=== PATIENT | male | born 2000 | race Caucasian/White ===

== ENCOUNTER 2023-04-15 14:15 | Observation (INO) ==
[2023-04-15 14:51] LABS: Basophils # (auto) 0.01 K/uL (0.00-0.20); Basophils % (auto) 0.2 %; Eosinophils # (auto) 0.03 K/uL (0.00-0.50); Eosinophils % (auto) 0.5 %; Hematocrit (blood only) 46.7 % (42.0-52.0); Hemoglobin 15.7 g/dl (14.0-18.0); Immature Granulocytes # (auto) 0.02 K/uL (0.01-0.20); Immature Granulocytes % (auto) 0.3 %; Lymphocytes # (auto) 1.37 K/uL (1.20-3.40); Lymphocytes % (auto) 22.4 %; Mean Corpuscular Hemoglobin 31.3 pg (25.0-34.0); Mean Corpuscular Hgb Conc 33.6 g/dL (32.0-36.0); Mean Platelet Volume 10.8 fL (9.4-12.4); Monocytes # (auto) 0.57 K/uL (0.11-0.59); Monocytes % (auto) 9.3 %; Neutrophils # (auto) 4.11 K/uL (1.40-6.50); Neutrophils % (auto) 67.3 %; Platelet Count 242 K/uL (130-400); RDW Coefficient of Variation 12.5 % (11.5-14.5); RDW Standard Deviation 43.2 fL (36.4-46.3); Red Blood Count 5.02 M/uL (4.70-6.10); White Blood Count 6.11 K/ul (4.8-10.8)
[2023-04-15] MEDS ORDERED: SODIUM CHLORIDE 0.9% 1,000 ML IV ONE ×2 (14:51→16:07)
--- NOTE | 2023-04-15 14:52 | Emergency Department Note ---
Impression & Plan Acute pancreatitis ADMIT ED Provider Note HPI: History obtained from patient. The patient is a 22-year-old male who presents emergency department with a chief complaint of epigastric and left-sided abdominal pain. Patient states he has had this pain for the past several days. Patient states yesterday he had a large episode of emesis. Patient denies any diarrhea. Patient denies any chest pain. On arrival here to the ED the patient is mildly tachycardic at 101 but otherwise hemodynamically stable and saturating well on room air. ROS: - Per HPI Differential Diagnosis: Acute gastritis, acute pancreatitis, acute cholecystitis, esophagitis, ACS, pulmonary embolism, pneumothorax, amongst other potential pathologies. *Outpatient medications and allergy history reviewed. PE: General: Alert HEENT: Normocephalic, trachea midline Eyes: Extraocular eye movement is intact, no scleral erythema Pulmonary: Clear to auscultation bilaterally, no wheezing Cardio: Regular rate and rhythm GI: Abdomen is soft to palpation, moderate tenderness over the epigastric area without any guarding or rigidity : No suprapubic tenderness MSK: No evidence of trauma or malformation of the extremities, no edema Skin: No evidence of rash Neuro: Alert, no focal deficits Psychiatric: Cooperative INDEPENDENT INTERPRETATIONS: monitor and storage bin tender: (As interpreted by myself): - An order was placed for continuous cardiac monitoring - Patient was noted to be in sinus rhythm with a rate of 85 EKG: (As interpreted by myself): Rate: 93 Rhythm: Normal sinus rhythm Intervals: Within normal limits ST changes: No ST elevation Time: 1424 Chest x-ray: (As interpreted by myself): No acute disease Interventions provided in ED: -IV fluid bolus Medical Decision Making: IV was established and lab work obtained, patient was placed on cafeteria monitor. Lab work shows no leukocytosis, hemoglobin is normal, platelet count is normal, CMP does not show any critical findings. Troponin is negative x 1. Lipase is elevated at 338. Bilirubin is normal, there is no transaminitis. CT imaging of the abdomen pelvis was obtained that shows evidence of a mild pancreatitis. There is no fluid collection or ductal dilatation noted by the interpreting radiologist. On my reassessment the patient appears well, he is in no acute distress. Given elevated lipase, pain on exam, and findings on CT imaging concerning for acute pancreatitis, patient will be admitted to the hospitalist service. Case was discussed with the on-call hospitalist, Dr. Watson, the patient was placed for admission in stable condition. Consultants/Discussions held with other healthcare providers: -Hospitalist, Dr. Watson Disposition discussion held by myself with: -Patient Diagnosis: 1. Acute pancreatitis 2. Abdominal pain, acute 3. Nausea and vomiting, acute Disposition: Admission Ponce Yeh DO Emergency Medicine Past Med/Surg History Medical History (Updated 04/15/23 @ 21:05 by Ponce Yeh DO) Marijuana smoker Vaping nicotine dependence, tobacco product No pertinent past medical history Surgical History (Updated 04/15/23 @ 16:58 by Valentine Watson DO) S/P nasal surgery No pertinent past surgical history Social History (Updated 04/15/23 @ 16:58 by Valentine Watson DO) Smoking Status: Current every day smoker Tobacco Type: E-cigarettes / Vaping Second Hand Exposure: No; Do You Dip or Chew Tobacco: No; Tobacco Cessation Education Requested by Patient: No Hx Alcohol Use: No Hx Substance Use: Yes Last Used Substance: Just Prior to Arrival Preferred Language: Luxembourgish Communication Ability: Effective Cotton Washer Required: No Beliefs That Will Affect Care: None Current Living Situation: Significant Other Other Information That Helps Us Care for You: No Feels Safe at Home: Yes Safety Concerns: Feels Safe At This Time Allergies Allergies Allergy/AdvReac Type Severity Reaction Status Date / Time No Known Allergies Allergy Unverified 10/29/19 16:54 Home Meds Home Medications Medication Instructions Recorded Confirmed No Known Home Medications 10/29/19 04/15/23 Results & Data (ED) Vital Signs Vital Signs - 24 hr 04/15/23 14:18 04/15/23 14:27 04/15/23 14:27 Temperature 37 C Temperature Source Temporal Artery Scan Pulse Rate 95 H Pulse Rate [Apical] 101 H Respiratory Rate 16 20 Respiratory Effort / Characteristics Non-Labored Spontaneous Non-Labored Respiratory Depth Normal Normal Respiratory Pattern Blood Pressure 131/94 Blood Pressure [Right Arm] 138/80 Blood Pressure Mean 106 Blood Pressure Mean [Right Arm] 99 Pulse Oximetry 98 99 Oxygen Delivery Method Room Air Room Air Room Air Sepsis Recent Fever Within 48 Hours No Sepsis New/Unexplained Change in Mental Status No Sepsis Action Taken by Nursing No Action Required 04/15/23 14:27 04/15/23 15:16 04/15/23 16:15 Temperature Temperature Source Pulse Rate 65 Pulse Rate [Apical] 86 Respiratory Rate 18 Respiratory Effort / Characteristics Non-Labored Respiratory Depth Normal Respiratory Pattern Regular Blood Pressure Blood Pressure [Right Arm] 121/77 Blood Pressure Mean Blood Pressure Mean [Right Arm] 91 Pulse Oximetry 99 99 Oxygen Delivery Method Room Air Room Air Sepsis Recent Fever Within 48 Hours Sepsis New/Unexplained Change in Mental Status Sepsis Action Taken by Nursing Laboratory Data 04/15/23 14:28 04/15/23 14:28 Lab Results 04/15/23 Range/Units 14:28 WBC 6.11 (4.8-10.8) K/ul RBC 5.02 (4.70-6.10) M/uL Hgb 15.7 (14.0-18.0) g/dl Hct 46.7 (42.0-52.0) % MCV 93.0 (80.0-100.0) fL MCH 31.3 (25.0-34.0) pg MCHC 33.6 (32.0-36.0) g/dL RDW Std Deviation 43.2 (36.4-46.3) fL RDW Coeff of Vijay 12.5 (11.5-14.5) % Plt Count 242 (130-400) K/uL MPV 10.8 (9.4-12.4) fL Immature Gran % (Auto) 0.3 % Neut % (Auto) 67.3 % Lymph % (Auto) 22.4 % [place] % (Auto) 9.3 % Eos % (Auto) 0.5 % Baso % (Auto) 0.2 % Neut # (Auto) 4.11 (1.40-6.50) K/uL Lymph # (Auto) 1.37 (1.20-3.40) K/uL [place] # (Auto) 0.57 (0.11-0.59) K/uL Eos # (Auto) 0.03 (0.00-0.50) K/uL Baso # (Auto) 0.01 (0.00-0.20) K/uL Immature Gran # (Auto) 0.02 (0.01-0.20) K/uL PT 12.4 H (9.0-12.0) Seconds INR 1.1 (0.9-1.1) Sodium 137 (136-145) mmol/L Potassium 3.6 (3.5-5.1) mmol/L Chloride 100 (98-107) mmol/L Carbon Dioxide 30 (21-32) mmol/L Anion Gap 7 (3-11) BUN 15 (6-23) mg/dl Creatinine 1.05 (0.6-1.4) mg/dl Est Cr Clr Drug Dosing 111.3 ml/min Est GFR ( Amer) 117.0 ml/min Est GFR (Non-Af Amer) 101.0 ml/min BUN/Creatinine Ratio 14.3 (10-20) Glucose 107 H (70-99(Fasting)) mg/dl Calcium 9.7 (8.6-10.3) mg/dl Total Bilirubin 0.4 (0.2-1.0) mg/dl AST 16 (13-39) U/L ALT 14 (7-52) U/L Alkaline Phosphatase 69 (34-104) U/L Troponin I High Sens < 2.3 (0-20) pg/ml Total Protein 7.8 (6.0-8.3) gm/dl Albumin 5.1 H (3.4-5.0) gm/dl Globulin 2.7 (2.5-4.0) gm/dl Albumin/Globulin Ratio 1.9 (0.9-2) Lipase 338 H (11-82) U/L Administered Medications Enoxaparin Sodium (Enoxaparin Inj 40 Mg/0.4 Ml Syr) 40 mg SQ Q24H TERESA Stop: 05/15/23 18:14 Last Admin: 04/15/23 18:20 Dose: Not Given Documented By: COLTEN Lactated Ringer's (Lr) 1,000 mls @ 150 mls/hr IV .Q6H40M TERESA Stop: 04/16/23 13:52 Last Admin: 04/15/23 18:11 Dose: 150 mls/hr Documented By: COLTEN Discontinued Medications Sodium Chloride (Nss) 1,000 mls @ 999 mls/hr IV .Q1H1M ONE Stop: 04/15/23 15:51 Last Infusion: 04/15/23 16:23 Dose: Infused Documented By: Admin: 04/15/23 15:04 Dose: 999 mls/hr Documented By: ANTHONY Sodium Chloride (Nss) 1,000 mls @ 999 mls/hr IV .Q1H1M ONE Stop: 04/15/23 17:07 Last Infusion: 04/15/23 17:24 Dose: Infused Documented By: Admin: 04/15/23 16:27 Dose: 999 mls/hr Documented By: ANTHONY Ioversol (Optiray 320 500ml) 90 ml IV ONCE ONE Stop: 04/15/23 15:44 Last Admin: 04/15/23 15:39 Dose: 90 ml Documented By: BRADY Imaging Data Radiologist's Impression: Chest X-Ray 04/15/23 14:22 XR chest 1V portable HISTORY: 22 years-old Male Chest pain, nonspecific COMPARISON: None TECHNIQUE: AP view of the chest FINDINGS: Cardiomediastinal and hilar silhouettes are within normal limits. No pneumothorax, pleural effusion or airspace consolidation. The bones appear normal. IMPRESSION: No acute process. ACT 112: Negative or not required by law. The above report was generated using voice recognition software. It may contain grammatical, syntax or spelling errors. Electronically signed by: Meng Tuttle M.D. 04/15/2023 2:59 PM Abdomen/Pelvis CT 04/15/23 14:[address] WITH IV CONTRAST CT DOSE: 698.68 mGy.cm HISTORY: Acute epigastric abdominal pain with nausea and vomiting Epigastric and left-sided abdominal pain, n/v TECHNIQUE: Multiaxial CT images of the abdomen and pelvis were performed following the IV administration of 90 cc of Optiray, A dose lowering technique was utilized adhering to the principles of ALARA. COMPARISON STUDY: 01/15/2023 FINDINGS: Subtle tree-in-bud micronodules are noted within the left lower lobe. There is mild interstitial peripancreatic edema with slightly decreased enhancement involving the pancreatic body. The liver, spleen, gallbladder, kidneys, and adrenal glands are within normal limits. Mild wall thickening of the distal esophagus and proximal stomach. Moderate fecal retention. Noninflamed appendix. No bowel wall thickening or obstruction. Mild urinary bladder wall thickening with partial distention. Trace free pelvic fluid. No suspicious lytic or blastic osseous lesions. IMPRESSION: 1. Mild acute pancreatitis. No acute peripancreatic fluid collection or pancreatic ductal dilation. 2. Mild wall thickening of the distal esophagus and stomach is nonspecific and may be reactive. A primary gastritis considered less likely. 3. No bowel obstruction or bowel wall thickening. 4. Trace ascites. 5. Noninflamed appendix. ACT 112: Negative or not required by law. The above report was generated using voice recognition software. It may contain grammatical, syntax or spelling errors. Electronically signed by: Meng Tuttle M.D. 04/15/2023 4:02 PM Discharge Plan Visit Data Chief Complaint: Chest Pain Stated Complaint: ABDOMINAL AND CHEST PAIN ED Provider: Ponce Yeh Discharge Problem: Acute pancreatitis Patient Disposition: Admitted As Inpatient Discharge Instructions Interventions: ED Discharge Assessment Last Done: 04/15/23 17:33 Discharge Problem: Acute pancreatitis Qualifiers: Pancreatitis type: unspecified pancreatitis type Acute pancreatitis complication: unspecified Qualified Code(s): K85.90 - Acute pancreatitis without necrosis or infection, unspecified
--- NOTE | 2023-04-15 15:01 | XRay Report ---
XR chest 1V portable HISTORY: 22 years-old Male Chest pain, nonspecific COMPARISON: None TECHNIQUE: AP view of the chest FINDINGS: Cardiomediastinal and hilar silhouettes are within normal limits. No pneumothorax, pleural effusion o r airspace consolidation. The bones appear normal. IMPRESSION: No acute process. ACT 112: Negative or not required by law. The above report was generated using voice recognition software. It may contain grammatical, syntax o r spelling errors. Electronically signed by: Meng Tuttle M.D. 04/15/2023 2:59 PM
[2023-04-15 15:04] LABS: Alanine Aminotransferase 14 U/L (7-52); Albumin Globulin Ratio 1.9 (0.9-2); Albumin Level 5.1 gm/dl (3.4-5.0); Alkaline Phosphatase 69 U/L (34-104); Anion Gap 7 (3-11); Aspartate Aminotransferase 16 U/L (13-39); BUN Creatinine Ratio 14.3 (10-20); Bilirubin,Total 0.4 mg/dl (0.2-1.0); Blood Urea Nitrogen 15 mg/dl (6-23); Calcium 9.7 mg/dl (8.6-10.3); Carbon Dioxide 30 mmol/L (21-32); Chloride 100 mmol/L (98-107); Creatinine Clr Calc Pharmacy 111.3 ml/min; Globulin 2.7 gm/dl (2.5-4.0); Glucose 107 mg/dl (70-99(Fasting)); Lipase 338 U/L (11-82); Potassium 3.6 mmol/L (3.5-5.1); Sodium 137 mmol/L (136-145); Total Protein 7.8 gm/dl (6.0-8.3)
[2023-04-15 15:09] LABS: INR 1.1 (0.9-1.1); Prothrombin Time 12.4 Seconds (9.0-12.0)
[2023-04-15 15:11] LABS: Troponin I High Sensitivity < 2.3 pg/ml (0-20)
[2023-04-15] MEDS ORDERED: OPTIRAY 320 500ml IV ONE (15:43)
--- NOTE | 2023-04-15 16:05 | CT Scan Report ---
ABDOMEN AND PELVIS CT WITH IV CONTRAST CT DOSE: 698.68 mGy.cm HISTORY: Acute epigastric abdominal pain with nausea and vomiting Epigastric and left-sided abdomina l pain, n/v TECHNIQUE: Multiaxial CT images of the abdomen and pelvis were performed following the IV administrat ion of 90 cc of Optiray, A dose lowering technique was utilized adhering to the principles of ALARA. COMPARISON STUDY: 01/15/2023 FINDINGS: Subtle tree-in-bud micronodules are noted within the left lower lobe. There is mild interst itial peripancreatic edema with slightly decreased enhancement involving the pancreatic body. The [place] er, spleen, gallbladder, kidneys, and adrenal glands are within normal limits. Mild wall thickening o f the distal esophagus and proximal stomach. Moderate fecal retention. Noninflamed appendix. No bowel wall thickening or obstruction. Mild urinary bladder wall thickening with partial distention. Trace free pelvic fluid. No suspicious lytic or blastic osseous lesions. IMPRESSION: 1. Mild acute pancreatitis. No acute peripancreatic fluid collection or pancreatic ductal dilation. 2. Mild wall thickening of the distal esophagus and stomach is nonspecific and may be reactive. A rashad brittany gastritis considered less likely. 3. No bowel obstruction or bowel wall thickening. 4. Trace ascites. 5. Noninflamed appendix. ACT 112: Negative or not required by law. The above report was generated using voice recognition software. It may contain grammatical, syntax o r spelling errors. Electronically signed by: Meng Tuttle M.D. 04/15/2023 4:02 PM
--- NOTE | 2023-04-15 17:01 | History & Physical Report ---
Date of Service April 15, 2023 Assessment & Plan (1) Acute pancreatitis: Plan: Recent exposure to others with a GI illness may have contributed to symptoms of vomiting and fever yesterday with elevation in lipase as a result of that. However, CT scan shows evidence of mild pancreatitis and with epigastric TTP, and pain with eating, the clinical picture is consistent with mild pancreatitis. He reports feeling hungry so will trial clears starting tomorrow. Cont with IVF overnight for rehydration efforts and pain control as needed. (2) Vaping nicotine dependence, tobacco product: Plan: Smoking cessation recommended. (3) Marijuana smoker: Plan: Vapes marijuana, consider using edible or alternative to avoid combustible inhaled substances. DVT proph: SCDs/ambulation Full Code Dispo-to home in next 1-2 days as long as tolerating PO. I spent a total [id number] coordinating, documenting, and providing care for this patient excluding time spent in the performance of separately billed services Valentine Watson DO [facility] Hospitalist History of Present Illness Chief Complaint: epigastric pain Primary Care Provider: Chandni Saez MD 22 yo M presents with 2 days of epigastric pain. He reports that food causes him epigastric pain. He had an episode of nonbloody emesis yesterday described as green. He reports a fever yesterday and lethargy but no chills and is afebrile today. His fiance is at bedside and assists wtih the history. He has not had great PO intake with last meal being pork chops that were home made two nights before. He also reports two others who he interacted with who were sick with similiar symptoms of vomiting. One was a brother who is 16 yo and another was a friend's child who had direct contact with the patient recently and also suffered from a GI illness. Allergies Allergy/AdvReac Type Severity Reaction Status Date / Time No Known Allergies Allergy Unverified 10/29/19 16:54 Home Medications Medication Instructions Recorded Confirmed Type No Known Home Medications 10/29/19 04/15/23 History Past Med/Surg History Medical History (Updated 04/15/23 @ 20:32 by Valentine Watson DO) Marijuana smoker Vaping nicotine dependence, tobacco product No pertinent past medical history Surgical History (Updated 04/15/23 @ 16:58 by Valentine Watson DO) S/P nasal surgery No pertinent past surgical history Social History (Updated 04/15/23 @ 16:58 by Valentine Watson DO) Smoking Status: Current every day smoker Tobacco Type: E-cigarettes / Vaping Second Hand Exposure: No; Do You Dip or Chew Tobacco: No; Tobacco Cessation Education Requested by Patient: No Hx Alcohol Use: No Hx Substance Use: Yes Last Used Substance: Just Prior to Arrival Preferred Language: Uruguayan Communication Ability: Effective Ice Cream Chef Required: No Beliefs That Will Affect Care: None Current Living Situation: Significant Other Other Information That Helps Us Care for You: No Feels Safe at Home: Yes Safety Concerns: Feels Safe At This Time Physical Exam Physical Exam: CONSTITUTIONAL: WNWD, vitals as above, generally well-appearing, NAD EYES: normal conjunctivae, no scleral icterus ENT: external ear and nose normal, MMM NECK: trachea midline RESPIRATORY: clear to auscultation bilaterally, no crackles, rales or wheezes, normal respiratory effort CARDIOVASCULAR: regular rate and rhythm, S1 and 2 heard without murmurs, gallops or rubs, no JVD, no peripheral edema CHEST: inspection of chest was normal GASTROINTESTINAL: normal bowel sounds, soft, epigastric TTP, nondistended, no guarding MUSCULOSKELETAL: strength 5/5 throughout, head is normocephalic and atraumatic, neck supple, normal palpation of chest wall without tenderness SKIN: warm and dry NEUROLOGIC: No facial palsy, no dysarthria. Touch, pain and proprioception normal. CN 2-12 grossly intact, no sensory deficit, normal cognition, normal speech, no tremor PSYCHIATRIC: alert cooperative and oriented to person, place and time. Euthymic mood, makes good eye contact, language grossly intact, recent and remote memory grossly intact. Results & Data Results & Data Vital Signs (Past 12 Hours) Vital Signs Temp Pulse Pulse Resp BP BP Pulse Ox 04/15/23 15:16 65 04/15/23 14:27 99 04/15/23 14:27 101 H 20 138/80 99 04/15/23 14:27 04/15/23 14:18 37 C 95 H 16 131/94 98 O2 Del Method 04/15/23 15:16 04/15/23 14:27 Room Air 04/15/23 14:27 Room Air 04/15/23 14:27 Room Air 04/15/23 14:18 Room Air Laboratory Results Short CBC 04/15/23 Range/Units 14:28 WBC 6.11 (4.8-10.8) K/ul Hgb 15.7 (14.0-18.0) g/dl Hct 46.7 (42.0-52.0) % Plt Count 242 (130-400) K/uL BMP 04/15/23 14:28 Sodium 137 Potassium 3.6 Chloride 100 Carbon Dioxide 30 BUN 15 Creatinine 1.05 Glucose 107 H Calcium 9.7 Liver Function 04/15/23 Range/Units 14:28 Total Bilirubin 0.4 (0.2-1.0) mg/dl AST 16 (13-39) U/L ALT 14 (7-52) U/L Alkaline Phosphatase 69 (34-104) U/L Albumin 5.1 H (3.4-5.0) gm/dl Diagnostic Findings Chest X-Ray 04/15/23 14:22 XR chest 1V portable HISTORY: 22 years-old Male Chest pain, nonspecific COMPARISON: None TECHNIQUE: AP view of the chest FINDINGS: Cardiomediastinal and hilar silhouettes are within normal limits. No pneumothorax, pleural effusion or airspace consolidation. The bones appear normal. IMPRESSION: No acute process. ACT 112: Negative or not required by law. The above report was generated using voice recognition software. It may contain grammatical, syntax or spelling errors. Electronically signed by: Meng Tuttle M.D. 04/15/2023 2:59 PM Abdomen/Pelvis CT 04/15/23 14:[address] WITH IV CONTRAST CT DOSE: 698.68 mGy.cm HISTORY: Acute epigastric abdominal pain with nausea and vomiting Epigastric and left-sided abdominal pain, n/v TECHNIQUE: Multiaxial CT images of the abdomen and pelvis were performed following the IV administration of 90 cc of Optiray, A dose lowering technique was utilized adhering to the principles of ALARA. COMPARISON STUDY: 01/15/2023 FINDINGS: Subtle tree-in-bud micronodules are noted within the left lower lobe. There is mild interstitial peripancreatic edema with slightly decreased enhancement involving the pancreatic body. The liver, spleen, gallbladder, kidneys, and adrenal glands are within normal limits. Mild wall thickening of the distal esophagus and proximal stomach. Moderate fecal retention. Noninflamed appendix. No bowel wall thickening or obstruction. Mild urinary bladder wall thickening with partial distention. Trace free pelvic fluid. No suspicious lytic or blastic osseous lesions. IMPRESSION: 1. Mild acute pancreatitis. No acute peripancreatic fluid collection or pancreatic ductal dilation. 2. Mild wall thickening of the distal esophagus and stomach is nonspecific and may be reactive. A primary gastritis considered less likely. 3. No bowel obstruction or bowel wall thickening. 4. Trace ascites. 5. Noninflamed appendix. ACT 112: Negative or not required by law. The above report was generated using voice recognition software. It may contain grammatical, syntax or spelling errors. Electronically signed by: Meng Tuttle M.D. 04/15/2023 4:02 PM Code Status & VTE Plan VTE Prophylaxis Plan VTE Prophylaxis will be ordered: Yes
[2023-04-15] MEDS ORDERED: ONDANSETRON INJ 2 MG/ML 2 ML VIAL IV PRN (17:53)
[2023-04-15] MEDS ORDERED: POLYETHYLENE (MIRALAX) 17 GM PACK PO PRN (17:53)
[2023-04-15] MEDS ORDERED: ACETAMINOPHEN 325 MG TAB PO PRN (17:53)
[2023-04-15] MEDS: LACTATED RINGER'S 1,000 ML IV SCH (18:11)
[2023-04-15] MEDS ORDERED: ENOXAPARIN INJ 40 MG/0.4 ML SYR SQ SCH (18:15)
[2023-04-16] MEDS: LACTATED RINGER'S 1,000 ML IV SCH ×2 (00:12→07:00)
[2023-04-16 05:57] LABS: Hematocrit (blood only) 38.1 % (42.0-52.0); Hemoglobin 12.9 g/dl (14.0-18.0); Mean Corpuscular Hemoglobin 31.7 pg (25.0-34.0); Mean Corpuscular Hgb Conc 33.9 g/dL (32.0-36.0); Mean Corpuscular Volume 93.6 fL (80.0-100.0); Mean Platelet Volume 10.6 fL (9.4-12.4); Platelet Count 203 K/uL (130-400); RDW Coefficient of Variation 12.3 % (11.5-14.5); RDW Standard Deviation 42.3 fL (36.4-46.3); Red Blood Count 4.07 M/uL (4.70-6.10); White Blood Count 5.41 K/ul (4.8-10.8)
[2023-04-16 06:25] LABS: Albumin Level 3.9 gm/dl (3.4-5.0); BUN Creatinine Ratio 12.1 (10-20); Bilirubin,Total 0.3 mg/dl (0.2-1.0); Calcium 8.7 mg/dl (8.6-10.3); Chol HDL Ratio 3.6 (0-5); Est GFR (African American) 125.7 ml/min; Est GFR (Non-African American) 108.4 ml/min; Potassium 3.8 mmol/L (3.5-5.1); Total Protein 5.9 gm/dl (6.0-8.3)
--- NOTE | 2023-04-16 06:45 | Ultrasound Report ---
ABDOMINAL ULTRASOUND, RIGHT UPPER QUADRANT HISTORY: Epigastric pain. Acute pancreatitis. rule out stones/sludge/bilary obstruction. COMPARISON: Abdomen and pelvis CT 04/15/2023. FINDINGS: Pancreas: Mild thickening of the pancreatic tail again noted likely corresponding to the acute pancre atitis seen on the prior CT examination. The main pancreatic duct is normal in caliber. Liver: Unremarkable. Gallbladder: No gallbladder wall thickening. No gallstones. CBD: 4 mm. Right kidney: No hydronephrosis. IMPRESSION: 1. Normal gallbladder. No gallstones. 2. Mild thickening of the pancreatic tail consistent with the acute pancreatitis seen on the prior CT . ACT 112: Negative or not required by law. Electronically signed by: Shaw Orosco M.D. 04/16/2023 6:44 AM
--- NOTE | 2023-04-16 07:38 | Electrocardiogram Report ---
Test Reason : Blood Pressure : / mmHG Vent. Rate : 093 BPM Atrial Rate : 093 BPM P-R Int : 154 ms QRS Dur : 102 ms QT Int : 342 ms P-R-T Axes : 077 069 048 degrees QTc Int : 425 ms Normal sinus rhythm Right atrial enlargement Borderline ECG No previous ECGs available Confirmed by John Sifuentes ([id number]) on 04/16/2023 7:38:18 AM Referred By: Confirmed By:John Sifuentes
--- NOTE | 2023-04-16 12:51 | Hospitalist Progress Note ---
Date of Service April 16, 2023 Assessment & Plan (1) Acute pancreatitis: Plan: Acute pancreatitis --CT ABD:Mild acute pancreatitis. No acute peripancreatic fluid collection or pancreatic ductal dilation. Mild wall thickening of the distal esophagus and stomach is nonspecific and may be reactive. A primary gastritis considered less likely. No bowel obstruction or bowel wall thickening.. Trace ascites. Noninflamed appendix. --Liver USD: Normal gallbladder. No gallstones. Mild thickening of the pancreatic tail consistent with the acute pancreatitis seen on the prior CT. --Lipase: 338>>78 --Tox Screen: +THC --Denies Alcohol use --Normal Lipid Panel -- Tolerated regular diet -Received IV fluids Advised to quit THC use Advised to follow-up with gastroenterology as outpatient as needed (2) Vaping nicotine dependence, tobacco product: Plan: Smoking cessation recommended. (3) Marijuana smoker: Plan: Vapes marijuana Counselled to quit DVT Px: SCDs/ambulation Code Status Full Code Admission and Anticipated Discharge Date Admission Date: April 15, 2023 Subjective Patient is seen and examined at bedside Abdominal pain resolved Tolerating regular diet Denies any nausea, vomiting, chest pain, dyspnea No other complaints Review of Systems Review of Systems: All systems reviewed & are unremarkable except as noted in Subjective Physical Exam Physical Exam: Physical Exam: Vitals signs as noted above General Appearance:Moderately built and nourished, no apparent distress Head: normocephalic, Atraumatic Eyes: normal inspection, EOMI Neck: supple, Trachea midline Respiratory/Chest: Normal breath sounds, CTA, No accessory muscle use Cardiovascular: S1, S2, No murmur Abdomen/GI:Soft, Non tender, Bowel sounds present Extremities/Musculoskeletal:normal inspection, no edema Neurologic/Psych:AAOX3, grossly no focal neurological deficits Skin: normal color, warm Results & Data Results & Data Vital Signs (Past 12 Hours) Vital Signs Temp Pulse Resp BP Pulse Ox O2 Del Method 04/16/23 06:48 37.1 C 74 16 113/71 96 Room Air Laboratory Results Short CBC 04/15/23 04/16/23 Range/Units 14:28 05:40 WBC 6.11 5.41 (4.8-10.8) K/ul Hgb 15.7 12.9 L (14.0-18.0) g/dl Hct 46.7 38.1 L (42.0-52.0) % Plt Count 242 203 (130-400) K/uL BMP 04/15/23 04/16/23 14:28 05:40 Sodium 137 140 Potassium 3.6 3.8 Chloride 100 107 Carbon Dioxide 30 27 BUN 15 12 Creatinine 1.05 0.99 Glucose 107 H 91 Calcium 9.7 8.7 Liver Function 04/15/23 04/16/23 Range/Units 14:28 05:40 Total Bilirubin 0.4 0.3 (0.2-1.0) mg/dl AST 16 11 L (13-39) U/L ALT 14 9 (7-52) U/L Alkaline Phosphatase 69 50 (34-104) U/L Albumin 5.1 H 3.9 (3.4-5.0) gm/dl (1) Acute pancreatitis Acute pancreatitis complication: unspecified Pancreatitis type: unspecified pancreatitis type Qualified Code(s): K85.90 - Acute pancreatitis without necrosis or infection, unspecified
--- NOTE | 2023-04-16 12:53 | Discharge Summary ---
Date of Service April 16, 2023 Admission HPI Per Admitting Provider 22 yo M presents with 2 days of epigastric pain. He reports that food causes him epigastric pain. He had an episode of nonbloody emesis yesterday described as green. He reports a fever yesterday and lethargy but no chills and is afebrile today. His fiance is at bedside and assists wtih the history. He has not had great PO intake with last meal being pork chops that were home made two nights before. He also reports two others who he interacted with who were sick with similiar symptoms of vomiting. One was a brother who is 16 yo and another was a friend's child who had direct contact with the patient recently and also suffered from a GI illness. Admission Exam Per Admitting Provider CONSTITUTIONAL: WNWD, vitals as above, generally well-appearing, NAD EYES: normal conjunctivae, no scleral icterus ENT: external ear and nose normal, MMM NECK: trachea midline RESPIRATORY: clear to auscultation bilaterally, no crackles, rales or wheezes, normal respiratory effort CARDIOVASCULAR: regular rate and rhythm, S1 and 2 heard without murmurs, gallops or rubs, no JVD, no peripheral edema CHEST: inspection of chest was normal GASTROINTESTINAL: normal bowel sounds, soft, epigastric TTP, nondistended, no guarding MUSCULOSKELETAL: strength 5/5 throughout, head is normocephalic and atraumatic, neck supple, normal palpation of chest wall without tenderness SKIN: warm and dry NEUROLOGIC: No facial palsy, no dysarthria. Touch, pain and proprioception normal. CN 2-12 grossly intact, no sensory deficit, normal cognition, normal speech, no tremor PSYCHIATRIC: alert cooperative and oriented to person, place and time. Euthymic mood, makes good eye contact, language grossly intact, recent and remote memory grossly intact. Principal Diagnosis Acute Pancreatitis Discharge Data Allergies Allergy/AdvReac Type Severity Reaction Status Date / Time No Known Allergies Allergy Unverified 10/29/19 16:54 Consultations 04/15/23 16:38 ED Decision to Admit Stat Procedures Performed Laboratory Results WBC 5.41 K/ul (4.8-10.8) 04/16/23 05:40 RBC 4.07 M/uL (4.70-6.10) L 04/16/23 05:40 Hgb 12.9 g/dl (14.0-18.0) L 04/16/23 05:40 Hct 38.1 % (42.0-52.0) L 04/16/23 05:40 MCV 93.6 fL (80.0-100.0) 04/16/23 05:40 MCH 31.7 pg (25.0-34.0) 04/16/23 05:40 MCHC 33.9 g/dL (32.0-36.0) 04/16/23 05:40 RDW Std Deviation 42.3 fL (36.4-46.3) 04/16/23 05:40 RDW Coeff of Vijay 12.3 % (11.5-14.5) 04/16/23 05:40 Plt Count 203 K/uL (130-400) 04/16/23 05:40 MPV 10.6 fL (9.4-12.4) 04/16/23 05:40 Immature Gran % (Auto) 0.3 % 04/15/23 14:28 Neut % (Auto) 67.3 % 04/15/23 14:28 Lymph % (Auto) 22.4 % 04/15/23 14:28 [place] % (Auto) 9.3 % 04/15/23 14:28 Eos % (Auto) 0.5 % 04/15/23 14:28 Baso % (Auto) 0.2 % 04/15/23 14:28 Neut # (Auto) 4.11 K/uL (1.40-6.50) 04/15/23 14:28 Lymph # (Auto) 1.37 K/uL (1.20-3.40) 04/15/23 14:28 [place] # (Auto) 0.57 K/uL (0.11-0.59) 04/15/23 14:28 Eos # (Auto) 0.03 K/uL (0.00-0.50) 04/15/23 14:28 Baso # (Auto) 0.01 K/uL (0.00-0.20) 04/15/23 14:28 Immature Gran # (Auto) 0.02 K/uL (0.01-0.20) 04/15/23 14:28 PT 12.4 Seconds (9.0-12.0) H 04/15/23 14:28 INR 1.1 (0.9-1.1) 04/15/23 14:28 Sodium 140 mmol/L (136-145) 04/16/23 05:40 Potassium 3.8 mmol/L (3.5-5.1) 04/16/23 05:40 Chloride 107 mmol/L (98-107) 04/16/23 05:40 Carbon Dioxide 27 mmol/L (21-32) 04/16/23 05:40 Anion Gap 6 (3-11) 04/16/23 05:40 BUN 12 mg/dl (6-23) 04/16/23 05:40 Creatinine 0.99 mg/dl (0.6-1.4) 04/16/23 05:40 Est Cr Clr Drug Dosing 118.0 ml/min 04/16/23 05:40 Est GFR ( Amer) 125.7 ml/min 04/16/23 05:40 Est GFR (Non-Af Amer) 108.4 ml/min 04/16/23 05:40 BUN/Creatinine Ratio 12.1 (10-20) 04/16/23 05:40 Glucose 91 mg/dl (70-99(Fasting)) 04/16/23 05:40 Calcium 8.7 mg/dl (8.6-10.3) 04/16/23 05:40 Total Bilirubin 0.3 mg/dl (0.2-1.0) 04/16/23 05:40 AST 11 U/L (13-39) L 04/16/23 05:40 ALT 9 U/L (7-52) 04/16/23 05:40 Alkaline Phosphatase 50 U/L (34-104) 04/16/23 05:40 Troponin I High Sens < 2.3 pg/ml (0-20) 04/15/23 14:28 Total Protein 5.9 gm/dl (6.0-8.3) L D 04/16/23 05:40 Albumin 3.9 gm/dl (3.4-5.0) 04/16/23 05:40 Globulin 2.0 gm/dl (2.5-4.0) L 04/16/23 05:40 Albumin/Globulin Ratio 2.0 (0.9-2) 04/16/23 05:40 Triglycerides 71 mg/dl (0-150) 04/16/23 05:40 Cholesterol 127 mg/dl (0-200) 04/16/23 05:40 LDL Cholesterol, Calc 78 mg/dl 04/16/23 05:40 VLDL Cholesterol, Calc 14 mg/dl (0-30) 04/16/23 05:40 HDL Cholesterol 35 mg/dl 04/16/23 05:40 Cholesterol/HDL Ratio 3.6 (0-5) 04/16/23 05:40 Lipase 78 U/L (11-82) 04/16/23 05:40 Impressions Chest X-Ray 04/15/23 14:22 XR chest 1V portable HISTORY: 22 years-old Male Chest pain, nonspecific COMPARISON: None TECHNIQUE: AP view of the chest FINDINGS: Cardiomediastinal and hilar silhouettes are within normal limits. No pneumothorax, pleural effusion or airspace consolidation. The bones appear normal. IMPRESSION: No acute process. ACT 112: Negative or not required by law. The above report was generated using voice recognition software. It may contain grammatical, syntax or spelling errors. Electronically signed by: Meng Tuttle M.D. 04/15/2023 2:59 PM Abdomen/Pelvis CT 04/15/23 14:[address] WITH IV CONTRAST CT DOSE: 698.68 mGy.cm HISTORY: Acute epigastric abdominal pain with nausea and vomiting Epigastric and left-sided abdominal pain, n/v TECHNIQUE: Multiaxial CT images of the abdomen and pelvis were performed following the IV administration of 90 cc of Optiray, A dose lowering technique was utilized adhering to the principles of ALARA. COMPARISON STUDY: 01/15/2023 FINDINGS: Subtle tree-in-bud micronodules are noted within the left lower lobe. There is mild interstitial peripancreatic edema with slightly decreased enhancement involving the pancreatic body. The liver, spleen, gallbladder, kidneys, and adrenal glands are within normal limits. Mild wall thickening of the distal esophagus and proximal stomach. Moderate fecal retention. Noninflamed appendix. No bowel wall thickening or obstruction. Mild urinary bladder wall thickening with partial distention. Trace free pelvic fluid. No suspicious lytic or blastic osseous lesions. IMPRESSION: 1. Mild acute pancreatitis. No acute peripancreatic fluid collection or pancreatic ductal dilation. 2. Mild wall thickening of the distal esophagus and stomach is nonspecific and may be reactive. A primary gastritis considered less likely. 3. No bowel obstruction or bowel wall thickening. 4. Trace ascites. 5. Noninflamed appendix. ACT 112: Negative or not required by law. The above report was generated using voice recognition software. It may contain grammatical, syntax or spelling errors. Electronically signed by: Meng Tuttle M.D. 04/15/2023 4:02 PM Liver Ultrasound 04/15/23 16:45 ABDOMINAL ULTRASOUND, RIGHT UPPER QUADRANT HISTORY: Epigastric pain. Acute pancreatitis. rule out stones/sludge/bilary obstruction. COMPARISON: Abdomen and pelvis CT 04/15/2023. FINDINGS: Pancreas: Mild thickening of the pancreatic tail again noted likely corresponding to the acute pancreatitis seen on the prior CT examination. The main pancreatic duct is normal in caliber. Liver: Unremarkable. Gallbladder: No gallbladder wall thickening. No gallstones. CBD: 4 mm. Right kidney: No hydronephrosis. IMPRESSION: 1. Normal gallbladder. No gallstones. 2. Mild thickening of the pancreatic tail consistent with the acute pancreatitis seen on the prior CT. ACT 112: Negative or not required by law. Electronically signed by: Shaw Orosco M.D. 04/16/2023 6:44 AM Ordered Studies 04/15/23 14:50 CT Abd and Pelvis [CT abd pelvis IV con only] Stat 04/15/23 16:45 US liver Routine Hospital Course (1) Acute pancreatitis: Acute pancreatitis --CT ABD:Mild acute pancreatitis. No acute peripancreatic fluid collection or pancreatic ductal dilation. Mild wall thickening of the distal esophagus and stomach is nonspecific and may be reactive. A primary gastritis considered less likely. No bowel obstruction or bowel wall thickening.. Trace ascites. Noninflamed appendix. --Liver USD: Normal gallbladder. No gallstones. Mild thickening of the pancreatic tail consistent with the acute pancreatitis seen on the prior CT. --Lipase: 338>>78 --Tox Screen: +THC --Denies Alcohol use --Normal Lipid Panel -- Tolerated regular diet -Received IV fluids Advised to quit THC use Advised to follow-up with gastroenterology as outpatient as needed (2) Vaping nicotine dependence, tobacco product: Smoking cessation recommended. (3) Marijuana smoker: Vapes marijuana Counselled to quit DVT Px: SCDs/ambulation Code Status Full Code Total Time Total Time Spent Total Time Spent (In Minutes): 54 minutes Discharge Plan Discharge Items Patient Disposition: Home - Self-Care Reason For Visit: ACUTE PANCREATITIS Discharge Diagnosis: Acute pancreatitis Activity: Per Instructions section Exercise/Sports: Wait until after follow-up appointment Non-emergency contact: Primary Care Provider and Data Analytics Chief Scientist Call non-emergency contact if: you have any medication questions, your symptoms worsen, your pain is concerning for you and you have a fever Follow-up/Referrals: Chandni Saez MD [Primary Care Provider] - Diet: Heart Healthy Addtl Attending Provider Instructions: Follow-up with your primary care physician in 1 week as advised Follow-up with your childbirth and infant care teacher if you have recurrent pancreatitis as needed. Seek immediate medical attention if your symptoms reoccur or worsen Please take all medications as instructed on discharge list below. Please call if you have any questions or problems. You can reach a [facility] hospitalist on duty at [facility] 24 hours a day by calling [phone] Pending Studies at Discharge: No Stand-Alone Forms: My [facility], Smoking Cessation Medications and DC Order Prescriptions: No Action No Known Home Medications Discharge Orders: Discharge Order (Routine); Ordered 04/16/23 Ordered By: David Trevino Admission Data Admit Date/Time: 04/15/23 16:40 Attending Provider: David Trevino Admit Provider: Valentine Watson Primary Care Provider: Chandni Saez Other Providers: Valentine Watson
== END 2023-04-16 13:47 | disposition home or self-care (01) ==
LOC: ED 14:15 → 3N 16:40 → INTOOBSV 16:40 → SUATTDRO 16:40 → 3N 17:33